=== PATIENT | male | born 1940 | race Caucasian/White ===

== ENCOUNTER 2020-07-11 13:18 | Emergency (ER) | payer MEDICARE, OTHER ==
[~2020-07-11] VITALS: Ht 185.4 cm; Wt 95.7 kg
[2020-07-11] MEDS ORDERED: SITA100T2 PO (13:41)
[2020-07-11] MEDS ORDERED: METFORMIN HCL500 M2 PO (13:41)
[2020-07-11] MEDS ORDERED: SYNTHROID200 MC1 PO (13:41)
[2020-07-11] MEDS ORDERED: Cetirizine HCl10 MG PO (13:41)
[2020-07-11] MEDS ORDERED: Quinapril HCl20 MG PO (13:41)
[2020-07-11] MEDS ORDERED: AMLODIPINE BESY10 MG PO (13:42)
[2020-07-11] MEDS ORDERED: SPIRONOLACTONE25 MG PO (13:42)
[2020-07-11] MEDS ORDERED: CARVEDILOL6.25 MG PO (13:42)
[2020-07-11] MEDS ORDERED: Norco 5-325 Ta1 EACH PO (16:12)
[2020-07-12] MEDS ORDERED: NAPR500 PO (10:47)
[2020-07-12] MEDS ORDERED: Percocet 7.5-31 EACH PO (10:47)
== END 2020-07-11 16:39 | disposition home or self-care (01) ==
LOC: ER 13:18
DX: S52.122A Displaced fracture of head of left radius, initial encounter for closed fracture (principal); F17.200 Nicotine dependence, unspecified, uncomplicated; Z79.84 Long term (current) use of oral hypoglycemic drugs; Z79.899 Other long term (current) drug therapy; W18.09XA Striking against other object with subsequent fall, initial encounter
CPT/HCPCS: 29105; 73080; 73090; 99283-25; A9270-GY

== ENCOUNTER 2020-07-12 09:36 | Emergency (ER) | payer MEDICARE, OTHER ==
[~2020-07-12] VITALS: Ht 185.4 cm; Wt 96.2 kg
[~2020-07-12 09:36] MED LIST: AMLODIPINE BESY10 MG PO; CARVEDILOL6.25 MG PO; Cetirizine HCl10 MG PO; METFORMIN HCL500 M2 PO; Norco 5-325 Ta1 EACH PO; Quinapril HCl20 MG PO; SITA100T2 PO; SPIRONOLACTONE25 MG PO; SYNTHROID200 MC1 PO
[2020-07-12] MEDS ORDERED: Percocet 7.5-31 EACH PO (10:47)
[2020-07-12] MEDS ORDERED: NAPR500 PO (10:47)
== END 2020-07-12 10:54 | disposition home or self-care (01) ==
LOC: ER 09:36
DX: S42.402A Unspecified fracture of lower end of left humerus, initial encounter for closed fracture (principal); S80.01XA Contusion of right knee, initial encounter; F17.200 Nicotine dependence, unspecified, uncomplicated; Z23 Encounter for immunization; Z79.84 Long term (current) use of oral hypoglycemic drugs; Z79.899 Other long term (current) drug therapy; W01.0XXA Fall on same level from slipping, tripping and stumbling without subsequent striking against object, initial encounter
CPT/HCPCS: 73562-RT; 90471; 90714; 99283-25

== ENCOUNTER 2020-08-09 10:47 | Emergency (ER) | payer MEDICARE, OTHER ==
[~2020-08-09] VITALS: Ht 185.4 cm; Wt 100.2 kg
[~2020-08-09 10:47] MED LIST changes: +NAPR500 PO; +Percocet 7.5-31 EACH PO
[2020-08-09 12:06] LABS: Source, Urine Clean Catch
[2020-08-09 12:17] LABS: Bilirubin, Urine Neg (Neg); Blood, Urine Neg (Neg); Glucose Qualitative, Urine Neg (Neg); Ketones, Urine Neg (Neg); Leukocyte Esterase, Urine Neg (Neg); Nitrite, Urine Neg (Neg); Protein, Urine 2+ (Neg); Urobilinogen, Urine NORM (Normal)
[2020-08-09 12:23] LABS: Appearance, Urine Clear (Clear); Color, Urine Yellow (P-Yellow)
[2020-08-09 12:26] LABS: Bacteria Rare /hpf; Red Blood Cells, Urine 0-2 /hpf (0-2); Squamous Epithelial Cells Rare /hpf (Few); White Blood Cells, Urine 0-2 /hpf (0-5)
== END 2020-08-09 13:00 | disposition home or self-care (01) ==
LOC: ER 10:47
PROVIDERS: Physician Assistant
DX: S52.122A Displaced fracture of head of left radius, initial encounter for closed fracture (principal); F17.200 Nicotine dependence, unspecified, uncomplicated; Z79.84 Long term (current) use of oral hypoglycemic drugs; Z79.899 Other long term (current) drug therapy; X58.XXXA Exposure to other specified factors, initial encounter
CPT/HCPCS: 81001; 99283

== ENCOUNTER 2020-08-12 09:45 | Day surgery (SDC) | payer MEDICARE, OTHER ==
[~2020-08-12] VITALS: Ht 193 cm; Wt 101.1 kg
[2020-08-12] MEDS ORDERED: SITA100T2 PO (10:15)
[2020-08-12] MEDS ORDERED: FURO80 PO (10:17)
--- NOTE | 2020-08-12 10:37 | NUR ---
Ambulatory in Day Surgery History, Chart, Medications and Allergies reviewed before start of procedure. Lungs clear T/O to Auscultation. Patient confirms NPO status and agrees with scheduled surgery. Pre-Op teaching done. Pt verbalizes understanding. Patient States Post-Procedure ride home has been arranged.
--- NOTE | 2020-08-12 13:11 | NUR ---
08/12/20 1311 Erwin Melgoza SUPRACLAVICULAR BLOCK DONE PER DR. SALAS AFTER INDUCTION
--- NOTE | 2020-08-12 15:47 | NUR ---
RESP E/U DOES NOT APPEAR TO BE SOB STATES HE DOES NOT FEEL SOB
--- NOTE | 2020-08-12 16:01 | NUR ---
NO PAIN OR NAUSEA FINGERS ON LEFT HAND APPEAR SWOLLEN CAP REFILL SLOW BUT WNL NOT ABLE TO WIGGLE THEM AT THIS TIME DUE TO NERVE BLOCK HAS SENSATION AND SHRUGS SHOULDER TELLING ME ABOUT HOW HE HURT HIS SHOULDER NO DISTRESS
[2020-08-12] MEDS ORDERED: METF500 PO (18:50)
[2020-08-12] MEDS ORDERED: GLIP5ER PO (18:50)
--- NOTE | 2020-08-13 03:42 | NUR ---
SHIFT SUMMARY: POD 1 ORIF LEFT ELBOW PT IS ALERT AND ORIENTED X4 WHILE AWAKE. HE SEEMS TO HAVE SLEPT VERY LITTLE LAST NIGHT. VS ARE WNL AND ON NC OXYGEN 4 LITERS AND MAINTAINING LOW 90'S. PAIN IS CONTROLLED WITH 1 DANIA PO SO FAR THIS SHIFT. ENCOURAGING FLUIDS AND PO INTAKE. PATIENT HAS JUST RECENTLY STARTED TO FEEL FINGER TIPS AND ARM MORE SINCE HE HAD GEN ANESTHESIA. HE HAS BEEN VOIDING IN A URNAL WITH YELLOW URINE WITH SOME ASSISTANCE. SBA WITH FWW AND GAIT BELT. FRANDY WRAP IS D/C/I ON LEFT ARM. HE IS NONWEIGHT BEARING ON LEFT ARM. PATIENT USES CALL LIGHT APPROPRIATELY. HE IS CURRENTLY LAYING BACK IN HIS CHAIR WATCHING TV. CALL LIGHT WITHIN REACH. THE PLAN IS TO POSSIBLY BE DISCHAGRED TODAY IF HE IS ABLE TO BE WEANED OFF OF THE OXYGEN.
--- NOTE | 2020-08-13 08:15 | NUR ---
PT CURRENTLY ON 4 L NC DEC TO 2 L WILL TRY TO KEEP WEANING OFF O2 THRU OUT TODAY
[2020-08-13 10:07] LABS: BASOPHILS ABSOLUTE AUTO 0.02 K/mm3 (0.00-0.23); BASOPHILS PERCENT AUTO 0 % (0-2); EOSINOPHILS ABSOLUTE AUTO 0.01 K/mm3 (0.00-0.68); EOSINOPHILS PERCENT AUTO 0 % (0-6); Hematocrit 31.4 % (37.0-53.0); Hemoglobin 9.8 g/dL (13.5-17.5); IMMATURE GRAN ABSOLUTE AUTO 0.06 K/mm3 (0.00-0.10); IMMATURE GRAN PERCENT AUTO 1 % (0-1); LYMPHOCYTES ABSOLUTE AUTO 1.25 K/mm3 (0.84-5.20); LYMPHOCYTES PERCENT AUTO 9 % (21-46); MONOCYTES ABSOLUTE AUTO 1.98 K/mm3 (0.16-1.47); MONOCYTES PERCENT AUTO 15 % (4-13); Mean Corpuscular HGB 25.5 pg (26.0-34.0); Mean Corpuscular HGB Conc 31.2 g/dL (31.5-36.5); Mean Corpuscular Volume 82 fL (80-100); Mean Platelet Volume 9.8 fL (9.1-12.4); NEUTROPHILS ABSOLUTE AUTO 9.96 K/mm3 (1.96-9.15); NEUTROPHILS PERCENT AUTO 75 % (41-73); Platelet Count 311 K/mm3 (150-400); RDW Coefficient Variation 17.4 % (11.7-14.2); RDW Standard Deviation 51.4 fL (35.1-46.3); Red Blood Cell Count 3.85 M/mm3 (4.30-5.90); White Blood Cell Count 13.28 K/mm3 (4.00-11.30)
[2020-08-13 10:23] LABS: Albumin, Blood 2.9 g/dL (3.4-5.0); Albumin/Globulin Ratio 0.7 (0.8-1.8); Bilirubin, Total 0.3 mg/dL (0.1-1.0); Bun/Creatinine Ratio 30.3 (12.0-20.0); Calcium, Blood 8.5 mg/dL (8.5-10.1); Creatinine, Blood 1.85 mg/dL (0.60-1.20); Globulin, Blood 4.3 g/dL (2.2-4.0); Potassium, Blood 5.1 mmol/L (3.5-5.5); Total Protein, Blood 7.2 g/dL (6.4-8.2)
--- NOTE | 2020-08-13 12:42 | NUR ---
kelton vargas by to see pt earlier awaiting dr remy vila for offical d/c
[2020-08-13] MEDS ORDERED: OXYC5 PO (15:28)
--- NOTE | 2020-08-13 16:00 | NUR ---
dr remy vila by to see pt ok to discharge home rx given no acute changes wc escort to car
== END 2020-08-13 16:00 | disposition home or self-care (01) ==
LOC: ORSCMMR 09:45 → ORD 12:30 → SURS 16:46 → ORSCMMR 08-13 16:00 → SURS 08-13 16:00
PROVIDERS: Nurse Practitioner Acute Care; Orthopaedic Surgery
PROC: 0PSJ04Z Reposition Left Radius with Internal Fixation Device, Open Approach (ICD-10-PCS; principal; 2020-08-12 11:30)
DX: S52.122A Displaced fracture of head of left radius, initial encounter for closed fracture (principal); S52.132A Displaced fracture of neck of left radius, initial encounter for closed fracture; I10 Essential (primary) hypertension; J44.9 Chronic obstructive pulmonary disease, unspecified; F17.210 Nicotine dependence, cigarettes, uncomplicated; N18.9 Chronic kidney disease, unspecified; E11.9 Type 2 diabetes mellitus without complications; E03.9 Hypothyroidism, unspecified; Z79.899 Other long term (current) drug therapy; Z79.84 Long term (current) use of oral hypoglycemic drugs; Z79.82 Long term (current) use of aspirin; W18.30XA Fall on same level, unspecified, initial encounter
CPT/HCPCS: 36415; 71046; 80053; 82947; 83880; 85025; A9270; C1713; J0690; J1100; J2370; J2405; J2704; J3010; J7120

== ENCOUNTER 2021-06-16 11:46 | Emergency (ER) | payer MEDICARE, OTHER ==
[~2021-06-16] VITALS: Ht 185.4 cm; Wt 98.9 kg
[~2021-06-16 11:46] MED LIST changes: +FURO80 PO; +GLIP5ER PO; +METF500 PO; +OXYC5 PO
[2021-06-16 14:12] LABS: BASOPHILS ABSOLUTE AUTO 0.04 K/mm3 (0.00-0.23); BASOPHILS PERCENT AUTO 0 % (0-2); EOSINOPHILS ABSOLUTE AUTO 0.24 K/mm3 (0.00-0.68); EOSINOPHILS PERCENT AUTO 2 % (0-6); Hematocrit 36.9 % (37.0-53.0); Hemoglobin 11.5 g/dL (13.5-17.5); IMMATURE GRAN ABSOLUTE AUTO 0.04 K/mm3 (0.00-0.10); IMMATURE GRAN PERCENT AUTO 0 % (0-1); LYMPHOCYTES ABSOLUTE AUTO 1.32 K/mm3 (0.84-5.20); LYMPHOCYTES PERCENT AUTO 12 % (21-46); MONOCYTES ABSOLUTE AUTO 1.43 K/mm3 (0.16-1.47); MONOCYTES PERCENT AUTO 13 % (4-13); Mean Corpuscular HGB 26.3 pg (26.0-34.0); Mean Corpuscular HGB Conc 31.2 g/dL (31.5-36.5); Mean Corpuscular Volume 84 fL (80-100); Mean Platelet Volume 10.2 fL (9.1-12.4); NEUTROPHILS ABSOLUTE AUTO 7.81 K/mm3 (1.96-9.15); NEUTROPHILS PERCENT AUTO 72 % (41-73); Platelet Count 361 K/mm3 (150-400); RDW Coefficient Variation 16.6 % (11.7-14.2); RDW Standard Deviation 51.5 fL (35.1-46.3); Red Blood Cell Count 4.37 M/mm3 (4.30-5.90); White Blood Cell Count 10.88 K/mm3 (4.00-11.30)
[2021-06-16 14:47] LABS: Albumin/Globulin Ratio 0.6 (0.8-1.8); Bilirubin, Total 0.2 mg/dL (0.1-1.0); Calcium, Blood 9.6 mg/dL (8.5-10.1); Creatinine, Blood 1.6 mg/dL (0.60-1.20); Globulin, Blood 4.9 g/dL (2.2-4.0); Total Protein, Blood 7.9 g/dL (6.4-8.2)
[2021-06-16] MEDS ORDERED: CEPH500 PO (14:53)
== END 2021-06-16 15:05 | disposition home or self-care (01) ==
LOC: ER 11:46
PROVIDERS: Physician Assistant
DX: L02.31 Cutaneous abscess of buttock (principal); L02.415 Cutaneous abscess of right lower limb; L02.425 Furuncle of right lower limb; F17.200 Nicotine dependence, unspecified, uncomplicated; Z88.8 Allergy status to other drugs, medicaments and biological substances; Z79.899 Other long term (current) drug therapy; Z79.84 Long term (current) use of oral hypoglycemic drugs
CPT/HCPCS: 10060; 72192; 80053; 83690; 85025; 99283-25

== ENCOUNTER → 2021-10-16 | Outpatient (CLI) | payer MEDICARE, OTHER ==
[~2021-10-16] MED LIST changes: +CEPH500 PO
[2021-10-16 12:02] LABS: BASOPHILS ABSOLUTE AUTO 0.02 K/mm3 (0.00-0.23); BASOPHILS PERCENT AUTO 0 % (0-2); EOSINOPHILS ABSOLUTE AUTO 0.08 K/mm3 (0.00-0.68); EOSINOPHILS PERCENT AUTO 1 % (0-6); Hematocrit 31.7 % (37.0-53.0); Hemoglobin 10.2 g/dL (13.5-17.5); IMMATURE GRAN ABSOLUTE AUTO 0.02 K/mm3 (0.00-0.10); IMMATURE GRAN PERCENT AUTO 0 % (0-1); LYMPHOCYTES ABSOLUTE AUTO 1.18 K/mm3 (0.84-5.20); LYMPHOCYTES PERCENT AUTO 16 % (21-46); MONOCYTES ABSOLUTE AUTO 1.64 K/mm3 (0.16-1.47); MONOCYTES PERCENT AUTO 23 % (4-13); Mean Corpuscular HGB Conc 32.2 g/dL (31.5-36.5); Mean Corpuscular Volume 84 fL (80-100); Mean Platelet Volume 10.3 fL (9.1-12.4); NEUTROPHILS PERCENT AUTO 59 % (41-73); Platelet Count 281 K/mm3 (150-400); RDW Coefficient Variation 17.1 % (11.7-14.2); RDW Standard Deviation 52.3 fL (35.1-46.3); Red Blood Cell Count 3.78 M/mm3 (4.30-5.90); White Blood Cell Count 7.24 K/mm3 (4.00-11.30)
[2021-10-16 12:10] LABS: Albumin, Blood 2.9 g/dL (3.4-5.0); Albumin/Globulin Ratio 0.8 (0.8-1.8); Bilirubin, Total 0.5 mg/dL (0.1-1.0); Creatinine, Blood 1.43 mg/dL (0.60-1.20); Globulin, Blood 3.8 g/dL (2.2-4.0); Potassium, Blood 4.5 mmol/L (3.5-5.5); Total Protein, Blood 6.7 g/dL (6.4-8.2)
== END ==
LOC: LAB SHORT 11:53
PROVIDERS: Chiropractor
DX: R06.00 Dyspnea, unspecified (principal); R60.0 Localized edema
CPT/HCPCS: 80053; 83880; 85025

== ENCOUNTER → 2021-10-18 | Outpatient (CLI) | payer MEDICARE, OTHER ==
[2021-10-18 13:41] LABS: Bun/Creatinine Ratio 21.2 (12.0-20.0); Calcium, Blood 9.3 mg/dL (8.5-10.1); Creatinine, Blood 1.79 mg/dL (0.60-1.20); Potassium, Blood 5.1 mmol/L (3.5-5.5)
== END ==
LOC: LAB SHORT 13:28
PROVIDERS: General Practice
DX: I50.9 Heart failure, unspecified (principal); R82.90 Unspecified abnormal findings in urine
CPT/HCPCS: 80048